=== PATIENT | female | born 1950 | race Caucasian/White ===

== ENCOUNTER 2017-12-17 19:25 | Emergency (ER) | payer OTHER ==
--- OUTSIDE RECORDS SUMMARY | 2017-12-17 19:27 | XMS REPORT ---
:1950 Author Organization [facility] Address [address] [place] [address] Care Team Providers Name Role Phone Unavailable Unavailable Unavailable Problems This patient has no known problems. Allergies, Adverse Reactions, Alerts This patient has no known allergies or adverse reactions. Medications This patient has no known medications. Results Test Description Test Time Test Comments Text Results Atomic Results Result Comments Mammo Digital 2017-09-02 13:52:42 CLINICAL INDICATION: Status post Mammography Diagnostic, ultrasound-guided biopsies with marker Unilat clip placement.MODALITY: Siemens Inspiration Full Field Digital MammographyTECHNIQUE: Digital acquisition of the breasts is performed on the ACR accredited Full Field Digital Mammography Unit. Computer Assisted Detection (CAD) is then accomplished using AdsIt Technology. Imaging of the left breast is performed.FINDINGS:COMPARISON STUDY: 08/27/2091 noThere are scattered fibroglandular tissues in both breasts.There is a new heart shaped marker clip in the left breast 3 o clock. This is associated with the mass seen on the prior examination. More superior and laterally, there is a second wreath shaped marker clip.IMPRESSION:Status post ultrasound-guided biopsies with marker clip placement. Category: BIRADS - Post procedure mammograms for marker clip placement. For internal use only X:X US Biopsy, Breast 2017-09-02 13:12:54 CLINICAL INDICATION: N63 Unspecified Ultrasound guidance, lump in breastFINDINGS:The risks and with placement of benefits of the procedure were breast localization discussed with the patient and a first lesion written informed consent obtained.The nodule in the left breast 2 o clock, 6 cm from the nipple was identified under ultrasound. The skin was then cleansed with Betadine. Local anesthesia was obtained with 1% lidocaine. A small skin rand was made using a scalpel. Under ultrasound guidance, several cores were obtained from the nodule using a 12 gauge vacuum-assisted [employer] ultra core biopsy needle. The cores were placed in formalin and sent to pathology. A wreath shaped marker clip was placed at the site of biopsy. The skin incision was closed with Steri-Strips. The patient tolerated procedure well without any complications.IMPRESSION:Status post ultrasound-guided biopsy of nodule in the left breast.Final pathology demonstrates hyalinizing fibroadenoma. The findings are concordant with imaging.The results were faxed to Dr. Way s office on 09/08/2017.BIRADS 2 - Benign. For internal use only X:X US Biopsy, Breast 2017-09-02 12:56:20 CLINICAL INDICATION: N63 Unspecified Ultrasound guidance, lump in breastFINDINGS:The risks and with placement of benefits of the procedure were breast localization discussed with the patient and a first lesion written informed consent obtained.The mass in the left breast 3 o clock, 9 cm from the nipple was identified under ultrasound. The skin was then cleansed with Betadine. Local anesthesia was obtained with 1% lidocaine. A small skin rand was made using a scalpel. Under ultrasound guidance, several cores were obtained from the mass using a 12 gauge vacuum-assisted Bard ultra core biopsy needle. The cores were placed in formalin and sent to pathology. A heart shaped marker clip was placed at the site of biopsy. The skin incision was closed with Steri-Strips. 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 Histologic grade 3/3. Biomarkers are negative for estrogen, negative for progesterone and negative for Her2.The findings are concordant with imaging. Surgical excision is recommended.The results were faxed to Dr. Way s office on 09/08/2017.BIRADS 6 - Known malignancy. For internal use only X:X US BREAST COMPLETE UNL 2017-08-26 11:37:40 CLINICAL INDICATION: Abnormal LT/RT mammogramMODALITY: Siemens Inspiration Full Field Digital Mammography, [place] [id number]: Digital acquisition of the breasts is performed on the ACR accredited Full Field Digital Mammography Unit. Computer Assisted Detection (CAD) is then accomplished using AdsIt Technology. Imaging of the left breast is performed.Realtime and Doppler color breast imaging in all quadrants was performed on the left breast.FINDINGS:COMPARISON STUDY: 08/22/2017There are scattered fibroglandular tissues in both breasts. Mass in question persists on additional mammographic images and corresponds with findings seen on ultrasound.Ultrasound of the left breast demonstrates an irregular hypoechoic mass measuring 9 x 9 x 9 mm in size at 3 o clock, 9 cm from the nipple. This corresponds to the mammographic finding of concern. An elongated hypoechoic lesion measuring 8 mm at 2 o clock, 6 cm from the nipple likely corresponds with a benign stable benign-appearing density on mammography. Benign-appearing lymph nodes are noted in the left axilla.IMPRESSION:Irregular hypoechoic mass in the left breast 3 o clock, highly suspicious for malignancy. Probably benign hypoechoic lesion in the left breast 2 o clock.RECOMMENDATION: Ultrasound-guided biopsies of the findings above are recommended for further evaluation.The findings were discussed with the patient.Category: BIRADS 5 - Highly suspicious for malignancy. Biopsy is recommended For internal use only B:0 Mammo Digital 2017-08-26 11:13:57 CLINICAL INDICATION: Abnormal Mammography Diagnostic, mammogramMODALITY: Siemens Unilat Inspiration Full Field Digital Mammography, Stefani [place] 70GTECHNIQUE: Digital acquisition of the breasts is performed on the ACR accredited Full Field Digital Mammography Unit. Computer Assisted Detection (CAD) is then accomplished using AdsIt Technology. Imaging of the left breast is performed.Realtime and Doppler color breast imaging in all quadrants was performed on the left breast.FINDINGS:COMPARISON STUDY: 08/22/2017There are scattered fibroglandular tissues in both breasts. Mass in question persists on additional mammographic images and corresponds with findings seen on ultrasound.Ultrasound of the left breast demonstrates an irregular hypoechoic mass measuring 9 x 9 x 9 mm in size at 3 o clock, 9 cm from the nipple. This corresponds to the mammographic finding of concern. An elongated hypoechoic lesion measuring 8 mm at 2 o clock, 6 cm from the nipple likely corresponds with a benign stable benign-appearing density on mammography. Benign-appearing lymph nodes are noted in the left axilla.
--- OUTSIDE RECORDS SUMMARY | 2017-12-17 19:27 | XMS REPORT | Clinical Summary ---
:1950 Author Organization [facility] Address [address] [place] [address] Care Team Providers Name Role Phone Tacho Leahy MD Primary Care Provider Allergies Active Allergy Reactions Severity Noted Date Comments No Known Drug Allergies 12/08/2015 Current Medications Prescription Sig. Disp. Refills Start Date End Date Status aspirin (ECOTRIN) 81 Take 1 Active MG enteric coated tablet by tablet mouth daily. levothyroxine Take 75 mcg 3 03/30/2016 Active (SYNTHROID, LEVOXYL) by mouth 75 mcg tablet once daily. PREMARIN 0.625 mg Take 0.625 4 03/31/2016 Active tablet mg by mouth once daily. losartan-hydrochloro Take 1 90 tablet 3 12/20/2016 Active thiazide (HYZAAR) tablet by 100-25 mg per tablet mouth daily. losartan-hydrochloro Take 1 90 tablet 3 06/25/2016 12/20/2016 Discontinued thiazide (HYZAAR) tablet by 100-25 mg per tablet mouth daily. carvedilol (COREG) Take 1 180 tablet 3 09/27/2016 09/27/2017 25 MG tablet tablet (25 mg total) by mouth 2 (two) times a day with meals. Active Problems Problem Noted Date Abnormal electrocardiogram 06/26/2016 Hyperlipidemia 12/23/2015 Hypertension 12/08/2015 Last Assessment & Plan: Increase Coreg to 25 BID Avoid salt/stress. Focus on diet/exercise/wt.loss. check lipids Abnormal electrocardiography 12/08/2015 Encounters Date Type Specialty Care Team Description 12/20/2016 Refill Cardiology Олег Sandhu MA Med Refill after 12/16/2016 Family History Medical History Relation Name Comments COPD Brother COPD Father Hypertension Father Hypertension Mother Uterine cancer Mother Coronary artery disease Other family history Relation Name Status Comments Brother Father Mother Other Social History Tobacco Use Types Packs/Day Years Used Date Never Smoker Smokeless Tobacco: Never Used Alcohol Use Drinks/Week oz/Week Comments No Sex Assigned at Date Recorded Not on file Last Filed Vital Signs Not on file Plan of Treatment Health Maintenance Due Date Last Done Comments BREAST CANCER SCREENING 2000 COLON CANCER SCREENING 2000 SHINGRIX VACCINE (#1) 2000 ZOSTER VACCINE 2010 PNEUMOCOCCAL POLYSACCHARIDE VACCINE AGE 65 AND OVER 11/17/2015 PNEUMOCOCCAL-13 11/17/2015 INFLUENZA VACCINE 09/21/2017 Results Not on fileafter 12/16/2016 Insurance Payer Benefit Plan / Group Subscriber ID Type Phone Address [facility] CHOICE/CHOICE + xxxxxxxxx HMO/PPO Work: [employer] [phone] [id number] Home:
[2017-12-17 20:15] LABS: Absolute Lymphocytes (CBC) 1.6 K/uL (0.7-4.9); Absolute Monocytes 1.1 K/uL (0.1-1.3); Absolute Neutrophil 13.3 K/uL (1.8-8.0); Basophils % 0.4 % (0-1.3); Eosinophils % 0.4 % (0-4.4); Hematocrit 28.7 % (36.0-45.0); Lymphocytes % 9.8 % (15.3-44.8); MCH 36.2 pg (27.0-35.0); MCV 105.2 fL (80-100); MPV 8.9 fL (7.6-11.3); Monocytes % 6.6 % (3.3-12.3); RBC Red Blood Cell Count 2.73 M/uL (3.86-4.86)
[2017-12-17 20:32] LABS: Protime INR 1.04
[2017-12-17 20:50] LABS: BUN Blood Urea Nitrogen 11 mg/dL (7-18); Bicarbonate 22 mmol/L (21-32); Glucose Level 119 mg/dL (74-106); Magnesium 2.4 mg/dL (1.8-2.4); NT PRO-BNP 207 pg/mL (<125); Potassium 3.8 mmol/L (3.5-5.1); Sodium Level 143 mmol/L (136-145); Troponin (Emerg Dept Use Only) < 0.02 ng/mL (0.0-0.045)
--- NOTE | 2017-12-17 21:12 | RAD REPORT ---
EXAM DESCRIPTION: [place] Single View12/17/2017 8:40 pm CLINICAL HISTORY: sob COMPARISON: 2012 FINDINGS: The lungs appear clear of acute infiltrate. The heart is normal size. Central venous line has its tip in superior vena cava IMPRESSION: No acute abnormalities displayed
[2017-12-17 21:18] LABS: Anisocytosis 1+; Blood Morphology Comment NOTED (NOT SEEN); Macrocytosis 1+; Platelet Estimate ADEQ; Teardrop Cell 1+
--- NOTE | 2017-12-17 21:24 | RAD REPORT ---
EXAM DESCRIPTION: USExtrem Venous W Compress Bil12/17/2017 9:18 pm CLINICAL HISTORY: Bilateral leg swelling COMPARISON: none FINDINGS: The common femoral, superficial femoral, popliteal and posterior tibial veins bilaterally are compressible and demonstrate augmentation. Doppler demonstrates good flow. IMPRESSION: No evidence of deep venous thrombosis involving either lower extremity.
--- NOTE | 2017-12-17 22:14 | EDPHYS ---
Physician Documentation [facility] Name: Jaquelin Fernandes Age: 67 yrs Sex: Female : 1950 Arrival Date: 12/17/2017 Time: 19:37 Bed 24 Private MD: ED Physician Miles Estrada HPI: 12/17 20:19 This 67 yrs old Female presents to ER via Ambulatory with complaints of Leg kb Swelling. 20:19 The patient presents with swelling. The complaints affect the right leg and left leg. kb Context: the patient can fully bear weight, the patient is able to ambulate. Onset: The symptoms/episode began/occurred today. Modifying factors: The symptoms are alleviated by nothing. the symptoms are aggravated by nothing. Associated signs and symptoms: Pertinent positives: swelling, Pertinent negatives calf tenderness, fever, nausea, numbness, rash, tingling, vomiting, warmth, weakness. Treatment prior to arrival includes: no previous treatment. Severity of symptoms: At their worst the symptoms were moderate, in the emergency department the symptoms are unchanged. The patient has not experienced similar symptoms in the past. The patient has not recently seen a physician. Pt noticed that she had swelling to both legs today. Called the after hours oncology dr and was told to come to ER for US to r/o dvt. Pt denies chest pain, shortness of breath or any other symptoms. Historical: - Home Meds: 20:45 Labetalol Oral 1 tab [Active]; aspirin 81 mg Oral chew [Active]; Synthroid Oral tl3 [Active]; - PMHx: 20:01 breast Ca; mg2 - PSHx: 20:01 None; mg2 - Immunization history:: Adult Immunizations up to date. - Social history:: Smoking status: Patient/guardian denies using tobacco, never smoked. - Ebola Screening: : No symptoms or risks identified at this time. ROS: 20:17 Constitutional: Negative for fever, chills, and weight loss, ENT: Negative for injury, kb pain, and discharge, Neck: Negative for injury, pain, and swelling, Cardiovascular: Negative for chest pain, palpitations. Respiratory: Negative for shortness of breath, cough, wheezing, and pleuritic chest pain, Abdomen/GI: Negative for abdominal pain, nausea, vomiting, diarrhea, and constipation, Back: Negative for injury and pain, : Negative for injury, bleeding, discharge, and swelling, Skin: Negative for injury, rash, and discoloration, Neuro: Negative for headache, weakness, numbness, tingling, and seizure. 20:17 Cardiovascular: Positive for edema. 20:17 MS/extremity: Positive for swelling, of the right leg and left leg. Exam: 20:17 Constitutional: This is a well developed, well nourished patient who is awake, alert, kb and in no acute distress. Head/Face: Normocephalic, atraumatic. ENT: Nares patent. No nasal discharge, no septal abnormalities noted. Tympanic membranes are normal and external auditory canals are clear. Oropharynx with no redness, swelling, or masses, exudates, or evidence of obstruction, uvula midline. Mucous membranes moist. Neck: Trachea midline, no thyromegaly or masses palpated, and no cervical lymphadenopathy. Supple, full range of motion without nuchal rigidity, or vertebral point tenderness. No Meningismus. Chest/axilla: Normal chest wall appearance and motion. Nontender with no deformity. No lesions are appreciated. Cardiovascular: Regular rate and rhythm with a normal S1 and S2. No gallops, murmurs, or rubs. Normal PMI, no JVD. No pulse deficits. Respiratory: Lungs have equal breath sounds bilaterally, clear to auscultation and percussion. No rales, rhonchi or wheezes noted. No increased work of breathing, no retractions or nasal flaring. Abdomen/GI: Soft, non-tender, with normal bowel sounds. No distension or tympany. No guarding or rebound. No evidence of tenderness throughout. Skin: Warm, dry with normal turgor. Normal color with no rashes, no lesions, and no evidence of cellulitis. MS/ Extremity: Pulses equal, no cyanosis. Neurovascular intact. Full, normal range of motion. Neuro: Awake and alert, GCS 15, oriented to person, place, time, and situation. Cranial nerves II-XII grossly intact. Motor strength 5/5 in all extremities. Sensory grossly intact. Cerebellar exam normal. Normal gait. 20:17 Cardiovascular: Edema: pedal edema, that is moderate. Vital Signs: 19:37 BP 141 / 71; Pulse 98; Resp 18; Temp 98.7; Pulse Ox 100% on R/A; Weight 77.11 kg; tl3 Height 5 ft. 4 in. (162.56 cm); 20:55 BP 141 / 65; Pulse 90; Resp 18; Pulse Ox 100% on R/A; Pain 0/10; mg2 19:37 Body Mass Index 29.18 (77.11 kg, 162.56 cm) tl3 MDM: 19:44 Patient medically screened. 20:19 Data reviewed: vital signs, nurses notes. Data interpreted: Pulse oximetry: on room air kb is 100 %. Interpretation: normal. 21:47 Counseling: I had a detailed discussion with the patient and/or guardian regarding: the kb historical points, exam findings, and any diagnostic results supporting the discharge/admit diagnosis, lab results, radiology results, the need for outpatient follow up, a family practitioner, to return to the emergency department if symptoms worsen or persist or if there are any questions or concerns that arise at home. 21:58 ED course: Pt educated on diagnostic results. States the dr she spoke to wanted to be kb called with results. call worker physician paged. Awaiting call back. 22:13 ED course: Spoke to Dr Cote, the oncologist account liaison from Dr Hassan, who referred pt to ER. Would like pt to follow up outpatient next week. 12/17 19:49 Order name: NT PRO-BNP; Complete Time: 21:00 kb 12/17 19:49 Order name: Basic Metabolic Panel; Complete Time: 21:00 kb 12/17 19:49 Order name: CBC with Diff; Complete Time: 21:21 kb 12/17 19:49 Order name: Magnesium; Complete Time: 21:00 kb 12/17 19:49 Order name: PT-INR; Complete Time: 21:00 kb 12/17 19:49 Order name: Troponin (emerg Dept Use Only); Complete Time: 21:00 kb 12/17 19:49 Order name: XRAY Chest (1 view); Complete Time: 21:17 kb 12/17 19:49 Order name: EKG; Complete Time: 19:49 kb 12/17 19:49 Order name: Cardiac monitoring; Complete Time: 19:58 kb 12/17 19:49 Order name: EKG - Nurse/Tech; Complete Time: 19:58 kb 12/17 19:49 Order name: IV Saline Lock; Complete Time: 19:58 kb 12/17 19:49 Order name: US Extremity Venous W Compression Rajeev; Complete Time: 21:47 kb 12/17 20:41 Order name: Manual Differential; Complete Time: 21:21 EDRI 12/17 22:07 Order name: Urine Dipstick--Ancillary (enter results) ms 12/17 19:49 Order name: Labs collected and sent; Complete Time: 19:58 kb 12/17 19:49 Order name: O2 Per Protocol; Complete Time: 19:58 kb 12/17 19:49 Order name: O2 Sat Monitoring; Complete Time: 19:58 kb 12/17 21:22 Order name: Urine Dipstick-Ancillary (obtain specimen); Complete Time: 21:35 kb Administered Medications: No medications were administered Disposition: 12/18 05:11 Co-signature as Attending Physician, Miles Estrada MD I agree with the assessment and 4 plan of care. Attestation: The patient's history, exam findings, diagnostics, and a summary of any interventions or procedures was reviewed in detail with Romy CASTILLO. Disposition: 12/17/17 22:13 Discharged to Home. Impression: Edema, unspecified, Elevated white blood cell count. - Condition is Stable. - Discharge Instructions: Edema, [id number], Peripheral Edema. - Medication Reconciliation Form, Thank You Letter, Antibiotic Education, Prescription Opioid Use form. - Follow up: Private Physician; When: 2 - 3 days; Reason: Recheck today's complaints, Continuance of care, Re-evaluation by your physician. Follow up: Emergency Department; When: As needed; Reason: Worsening of condition. Signatures: Dispatcher [employer] [facility] Romy Lara FNP-C FNP-Ckb Wadley, Terrence, MD MD tw4 Annie Ashby RN RN tl3 Jaret Woo RN RN mg2 Corrections: (The following items were deleted from the chart) 12/17 20:45 20:01 Home Meds: Cytoxan Oral; mg2 tl3 22:25 22:13 12/17/2017 22:13 Discharged to Home. Impression: Edema, unspecified; Elevated mg2 white blood cell count. Condition is Stable. Forms are Medication Reconciliation Form, Thank You Letter, Antibiotic Education, Prescription Opioid Use. Follow up: Private Physician; When: 2 - 3 days; Reason: Recheck today's complaints, Continuance of care, Re-evaluation by your physician. Follow up: Emergency Department; When: As needed; Reason: Worsening of condition. kb 23:00 22:13 ED course: Spoke to the oncologist account liaison from Dr Hassan. Would like pt to follow kb up outpatient next week. kb 23: 22:13 ED course: Spoke to Dr Cote, the oncologist account liaison from Dr Hassan. Would like pt kb to follow up outpatient next week. kb
--- NOTE | 2017-12-17 22:14 | ER ---
Nurse's Notes [facility] Name: Jaquelin Fernandes Age: 67 yrs Sex: Female : 1950 Arrival Date: 12/17/2017 Time: 19:37 Bed 24 Private MD: Diagnosis: Edema, unspecified;Elevated white blood cell count Presentation: 12/17 19:37 Presenting complaint: Patient states: swelling to bilateral legs, started today, on tl3 Chemo told to come get ultrasound done Outpatient Oncology [phone]. Transition of care: patient was not received from another setting of care. Onset of symptoms was December 17, 2017. Risk Assessment: Do you want to hurt yourself or someone else? Patient reports no desire to harm self or others. Initial Sepsis Screen: Does the patient meet any 2 criteria? No. Patient's initial sepsis screen is negative. Does the patient have a suspected source of infection? No. Patient's initial sepsis screen is negative. Care prior to arrival: None. 19:37 Method Of Arrival: Ambulatory tl3 19:37 Acuity: SANJANA 3 tl3 Triage Assessment: 19:37 General: Appears in no apparent distress. well groomed, well developed, well nourished, tl3 Behavior is calm, cooperative, appropriate for age. Pain: Denies pain. Historical: - Home Meds: 20:45 Labetalol Oral 1 tab [Active]; aspirin 81 mg Oral chew [Active]; Synthroid Oral tl3 [Active]; - PMHx: 20:01 breast Ca; mg2 - PSHx: 20:01 None; mg2 - Immunization history:: Adult Immunizations up to date. - Social history:: Smoking status: Patient/guardian denies using tobacco, never smoked. - Ebola Screening: : No symptoms or risks identified at this time. Screenin:00 Abuse screen: Denies threats or abuse. Denies injuries from another. Nutritional mg2 screening: No deficits noted. Tuberculosis screening: No symptoms or risk factors identified. Fall Risk IV access (20 points). Assessment: 19:58 General: Appears in no apparent distress. comfortable, Behavior is calm, cooperative. mg2 Pain: Denies pain. Neuro: Level of Consciousness is awake, alert, obeys commands, Oriented to person, place, time, situation. Cardiovascular: Capillary refill < 3 seconds Patient's skin is warm and dry. Respiratory: Airway is patent Respiratory effort is even, unlabored, Respiratory pattern is regular, symmetrical. GI: No signs and/or symptoms were reported involving the gastrointestinal system. : No signs and/or symptoms were reported regarding the genitourinary system. EENT: No signs and/or symptoms were reported regarding the EENT system. Derm: Skin is intact, is healthy with good turgor, Skin is pink, warm \T\ dry. normal. Musculoskeletal: Circulation, motion, and sensation intact. Capillary refill < 3 seconds, Swelling present in both legs. Vital Signs: 19:37 BP 141 / 71; Pulse 98; Resp 18; Temp 98.7; Pulse Ox 100% on R/A; Weight 77.11 kg; tl3 Height 5 ft. 4 in. (162.56 cm); 20:55 BP 141 / 65; Pulse 90; Resp 18; Pulse Ox 100% on R/A; Pain 0/10; mg2 19:37 Body Mass Index 29.18 (77.11 kg, 162.56 cm) tl3 ED Course: 19:37 Patient arrived in ED. am2 19:37 Arm band placed on right wrist. tl3 19:39 Triage completed. tl3 19:42 Romy Lara FNP-C [facility]. kb 19:42 Miles Estrada MD is Attending Physician. kb 19:49 Jaret Woo, DESTINY is Primary Nurse. mg2 20:00 Patient has correct armband on for positive identification. Bed in low position. Call mg2 light in reach. Side rails up X 1. site monitor on. Pulse ox on. NIBP on. Door closed. Warm blanket given. 20:00 No provider procedures requiring assistance completed. Inserted saline lock: 20 gauge mg2 in right antecubital area, using aseptic technique. Blood collected. 20:14 EKG done, by ED staff, reviewed by Miles Estrada MD. cb2 20:40 XRAY Chest (1 view) In Process Unspecified. EDMS 21:16 Ultrasound completed. Patient tolerated well. sg3 21:18 US Extremity Venous W Compression Rajeev In Process Unspecified. EDMS 22:24 IV discontinued, intact, bleeding controlled, No redness/swelling at site. Pressure mg2 dressing applied. Administered Medications: No medications were administered Outcome: 22:13 Discharge ordered by . kb 22:24 Discharged to home ambulatory, with family. mg2 22:24 Condition: stable 22:24 Discharge instructions given to patient, family, Instructed on discharge instructions, follow up and referral plans. Demonstrated understanding of instructions, follow-up care. 22:25 Patient left the ED. mg2 Signatures: Dispatcher [employer] EDMS Romy Lara, PREPARATION CENTER COORDINATOR-C PREPARATION CENTER COORDINATOR-Ckb Viridiana Zuniga am2 Paulino Heller Sarah 3 Annie Ashby, DESTINY RN tl3 Jaret Woo RN RN mg2 Corrections: (The following items were deleted from the chart) 20:45 20:01 Home Meds: Cytoxan Oral; mg2 tl3 21:52 20:55 Pulse 90bpm; Resp 18bpm; Pulse Ox 100% RA; Pain 0/10; mg2 mg2
[2017-12-18 01:14] LABS: Urine Blood NEGATIVE (NEG); Urine Glucose NEGATIVE (NEG); Urine Protein NEGATIVE (NEG); Urine Specific Gravity 1.015 (1.005-1.030)
--- NOTE | 2017-12-19 09:10 | EKG ---
Test Date: 2017-12-17 Test Time: 19:56:04 Rfid Specialist: TRE MEASUREMENT RESULTS: Intervals: Rate: 79 FL: 146 QRSD: 104 QT: 376 QTc: 431 Mckenzie: P: 43 FL: 146 QRS: -41 T: 76 INTERPRETIVE STATEMENTS: Normal sinus rhythm Left axis deviation Moderate voltage criteria for LVH, may be normal variant Cannot rule out Septal infarct, age undetermined Abnormal ECG Compared to ECG 02/18/1995 16:21:00 Left-axis deviation now present Left ventricular hypertrophy now present Myocardial infarct finding now present Electronically Signed On 12-19-17 09:10:23 CDT by Brigido Wang
== END 2017-12-17 22:25 | disposition home or self-care (01) ==
LOC: ER 19:25
DX: D72.829 Elevated white blood cell count, unspecified (principal); Z85.3 Personal history of malignant neoplasm of breast; Z79.82 Long term (current) use of aspirin
CPT/HCPCS: 36415; 71045; 80048; 81003; 83735; 83880; 84484; 85025; 85610; 93005; 93970; 99284

== ENCOUNTER 2019-06-13 16:28 | Emergency (ER) | payer OTHER ==
--- OUTSIDE RECORDS SUMMARY | 2019-06-13 16:33 | XMS REPORT ---
:1950 Author Organization [facility] t Address [address] [place] [address] Care Team Providers Name Role Phone Unavailable Unavailable Unavailable Problems This patient has no known problems. Allergies, Adverse Reactions, Alerts This patient has no known allergies or adverse reactions. Medications This patient has no known medications. Results Test Description Test Time Test Comments Text Results Atomic Results Result Comments US BREAST COMPLETE 2018-10-10 CLINICAL INDICATION: C 50.412 Malig neoplasm UNL LT/RT 11:21:59 of upper-outer quadrant of l eft female breast palpable lump left breast.MODALITY: Siemens I nspiration Full Field Digital Mammography, P hilips Affiniti 70GTECHNIQUE: Digital acqu isition of the breasts is performed on the ACR accredited Full Field Digital Mammograp hy Unit. Computer Assisted Detection (CAD) is then accomplished using R2 Techno logy. Imaging of the bilateral breast is p erformed. 3D tomosynthesis images were ac quired in the CC and MLO projections in heydi th breasts.Realtime and Doppl er color breast imaging in all quadrants was performed on the left breast.FINDINGS: COMPARISON STUDY: July 2016, May 2015 , February, August 2008Dia gnostic Mammogram:The breast paren chyma is scattered in tissue density. The left breast is smaller than the r ight breast , with postsurgical distortion in the left upper outer quadrant posteri or depth with overlying skin retraction. M ultiple surgical clips at the lumpec matthias bed.Benign-appearing calci fications are present bilaterally. CC and MLO 2-D and 3-D imaging was performed bilate rally. No suspicious findings in eithe r breast. Ultrasound:Left whole br east ultrasound is performed. Focused evalua tion is performed in the symptomatic concern. The palpable lump corresponds wi th the patient s lumpectomy bed. There is h ypoechoic scar tissue and echogenic tissue marker clips along the periphery of the l umpectomy bed which correlate with the maria l mogram and the symptoms.Incidentally iden tified is 19 by 25 x 7 mm mixed echogenicity area 2 o clock 1 cm from the nipple. When s canned real time, this resembles a promi nent island of glandular tissue or possible fibroadenoma. The previously smaller ident ified 5 mm area at 2 o clock 6 cm from the n ipple is no longer identified.No axill shannan adenopathy.IMPRESSION:1. The palpable lump left breast corresponds with the lumpectomy bed scar tissue a nd tissue marker clips.2. Incidentally identified probably benign 2 o clock ma ss like area resembles prominent fibrogla ndular tissue or possible fibroadenoma for which short-term interval imaging surveillance is recommended.RECOMMENDATION :Left diagnostic 3-D mammogram and ultrasound 6 monthsClinical follow-up of the patient s symptoms.Category: BIRADS 3 - Probably benign. Short interval follo wup recommended. For interna l use only F:6 Mammo Digital 2017-09-02 CLINICAL INDICATION: Stat us post Mammography 13:52:42 ultrasound-guided biopsies w ith marker clip Diagnostic, Unilat placement.MODALITY: S iemens Inspiration Full Field Digital Mammograp hyTECHNIQUE: Digital acquisition of the b reasts is performed on the ACR Precise Light Surgicali rod Full Field Digital Mammography Unit. Co mputer Assisted Detection (CAD) is then acco mplished using R2 Technology. Imaging of th e left breast is performed.FINDINGS:COMPAR MILLY STUDY: 08/27/2091 noThere are scatt ered fibroglandular tissues in heydi th breasts.There is a new heart shaped marker clip in the left breast 3 o clock. This is associated with the mass see n on the prior examination. More superior a nd laterally, there is a second wreath sha ped marker clip.IMPRESSION:Status post ultrasound-guided biopsies w ith marker clip placement. Category: BIRADS - Post procedure mammograms for mar ker clip placement. For internal us e only X:X US Biopsy, Breast 2017-09-02 CLINICAL INDICATION: N 63 Unspecified lump Ultrasound guidance, 13:12:54 in breastFINDINGS:Th e risks and benefits of with placement of the procedure were disc ussed with the breast localization patient and a written informed consent first lesion obtained.The nodule in the l eft breast 2 o clock, 6 cm from the nipple was identified under ultrasound. The skin was then cleansed with Betadine. Loc al anesthesia was obtained with 1% lidocai ne. A small skin rand was made using a s calpel. Under ultrasound guidance, several cores were obtained from the nodule usi ng a 12 gauge vacuum-assisted Bard ultra c ore biopsy needle. The cores were plac ed in formalin and sent to pathology. A wr eath shaped marker clip was placed at th e site of biopsy. The skin incision w as closed with Steri-Strips. The patient t olerated procedure well without any complications.IMPRESSION:Sta tus post ultrasound-guided biopsy of nodule in the left breast.Final pathology demonstrates hyalinizing fibroadenoma. T he findings are concordant with imaging.The results were faxed to Dr. Way s office on 09/08/2017.BIRADS 2 - Benign. For internal use only X:X US Biopsy, Breast 2017-09-02 CLINICAL INDICATION: N 63 Unspecified lump Ultrasound guidance, 12:56:20 in breastFINDINGS:Th e risks and benefits of with placement of the procedure were disc ussed with the breast localization patient and a written informed consent first lesion obtained.The mass in the lef t breast 3 o clock, 9 cm from the nipple was identified under ultrasound. The skin was then cleansed with Betadine. Loc al anesthesia was obtained with 1% lidocai ne. A small skin rand was made using a s calpel. Under ultrasound guidance, several cores were obtained from the mass using a 12 gauge vacuum-assisted Bard ultra c ore biopsy needle. The cores were plac ed in formalin and sent to pathology. A he art shaped marker clip was placed at th e site of biopsy. The skin incision w as closed with Steri-Strips. 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 Biomarkers are negative for estrogen, negat jose for progesterone and negative fo r Her2.The findings are concordant with imaging. Surgical excision is recomme nded.The results were faxed to Dr. Bala cortes s office on 09/08/2017.BIRADS 6 - Known m alignancy. For internal use only X:X US BREAST COMPLETE 2017-08-26 CLINICAL INDICATION: Abnormal UNL LT/RT 11:37:40 mammogramMODALITY: Siemens Inspiration Full Field Digital Mammograp hy, Stefani Affiniti 70GTECHNIQUE: Dig ital acquisition of the breasts i s performed on the ACR accredited Full Fiel d Digital Mammography Unit. Computer A ssisted Detection (CAD) is then acco mplished using R2 Technology. Imaging of th e left breast is performed.Realtime and Do ppler color breast imaging in all quadra nts was performed on the left breast.FINDINGS:COMPARISON S TUDY: 08/22/2017There are scattere d fibroglandular tissues in heydi th breasts. Mass in question persists on additional mammographic images and deepa esponds with findings seen on ultrasound. Ultrasound of the left breast demonstrates an irregular hypoechoic mass measuring 9 x 9 x 9 mm in size at 3 o clock, 9 cm from the nipple. This corresponds to the mamm ographic finding of concern. An elong ated hypoechoic lesion measuring 8 mm at 2 o clock, 6 cm from the nipple likely corre sponds with a benign stable benign-appeari ng density on mammography. Benign-appearin g lymph nodes are noted in the left axilla.IMPRESSION:Irregular hypoechoic mass in the left breast 3 o clock , highly suspicious for malignancy. P robably benign hypoechoic lesion in the lef t breast 2 o clock.RECOMMENDATION: Ultras ound-guided biopsies of the findings abo ve are recommended for further eval uation.The findings were discussed with the patient.Category: BIRADS 5 - Highly suspicious for malignancy. Biopsy is recommended For internal u se only B:0 Mammo Digital 2017-08-26 CLINICAL INDICATION: Abno rmal Mammography 11:13:57 mammogramMODALITY: Siemens Inspiration Diagnostic, Unilat Full Field Digital Maria L mography, Stefani Affiniti 70GTECHNIQUE: Dig ital acquisition of the breasts i s performed on the ACR accredited Full Fiel d Digital Mammography Unit. Computer A ssisted Detection (CAD) is then acco mplished using R2 Technology. Imaging of th e left breast is performed.Realtime and Do ppler color breast imaging in all quadra nts was performed on the left breast.FINDINGS:COMPARISON S TUDY: 08/22/2017There are scattere d fibroglandular tissues in heydi th breasts. Mass in question persists on additional mammographic images and deepa esponds with findings seen on ultrasound. Ultrasound of the left breast demonstrates an irregular hypoechoic mass measuring 9 x 9 x 9 mm in size at 3 o clock, 9 cm from the nipple. This corresponds to the mamm ographic finding of concern. An elong ated hypoechoic lesion measuring 8 mm at 2 o clock, 6 cm from the nipple likely corre sponds with a benign stable benign-appeari ng density on mammography. Benign-appearin g lymph nodes are noted in the left axilla.
[2019-06-13] MEDS ORDERED: BUPIVACAINE 0.5% PF 10 ML VIAL ONE (16:46)
[2019-06-13] MEDS ORDERED: LIDOCAINE 1% MPF 5 ML VIAL ONE (16:46)
--- NOTE | 2019-06-13 17:19 | EDPHYS ---
Physician Documentation [facility] Name: Jaquelin Fernandes Age: 68 yrs Sex: Female : 1950 Arrival Date: 06/13/2019 Time: 16:30 Bed 6 Private MD: ED Physician Babatunde Hernandez HPI: 06/12 16:42 This 68 yrs old Female presents to ER via Ambulatory with complaints of kb Finger Laceration. 16:42 The patient has a laceration related to: doing crafts, rib cutter, occurred at home, kb and there are no complicating factors. The injury was accidental. The laceration(s) is(are) located on the left index finger. Onset: The symptoms/episode began/occurred just prior to arrival. Associated signs and symptoms: The patient has no apparent associated signs or symptoms. The patient has not experienced similar symptoms in the past. The patient has not recently seen a physician. Historical: - Allergies: 16:33 No Known Allergies; sv - PMHx: 16:30 BREAST CA; sv 16:33 Eye cancer; sv - PSHx: 16:33 Eye; Hysterectomy; Shoulder; Foot; left breast lymph nodes removed; sv - Immunization history:: Flu vaccine is up to date. - Social history:: Smoking status: Patient denies any tobacco usage or history of. ROS: 16:41 Constitutional: Negative for fever, chills, and weight loss, Cardiovascular: Negative kb for chest pain, palpitations, and edema, Respiratory: Negative for shortness of breath, cough, wheezing, and pleuritic chest pain, Abdomen/GI: Negative for abdominal pain, nausea, vomiting, diarrhea, and constipation, Back: Negative for injury and pain, MS/Extremity: Negative for injury and deformity, Neuro: Negative for headache, weakness, numbness, tingling, and seizure. 16:41 Skin: Positive for laceration(s), of the left index finger. Exam: 16:41 Constitutional: This is a well developed, well nourished patient who is awake, alert, kb and in no acute distress. Head/Face: Normocephalic, atraumatic. Neck: Trachea midline, no thyromegaly or masses palpated, and no cervical lymphadenopathy. Supple, full range of motion without nuchal rigidity, or vertebral point tenderness. No Meningismus. Chest/axilla: Normal chest wall appearance and motion. Nontender with no deformity. No lesions are appreciated. Cardiovascular: Regular rate and rhythm with a normal S1 and S2. No gallops, murmurs, or rubs. Normal PMI, no JVD. No pulse deficits. Respiratory: Lungs have equal breath sounds bilaterally, clear to auscultation and percussion. No rales, rhonchi or wheezes noted. No increased work of breathing, no retractions or nasal flaring. Abdomen/GI: Soft, non-tender, with normal bowel sounds. No distension or tympany. No guarding or rebound. No evidence of tenderness throughout. MS/ Extremity: Pulses equal, no cyanosis. Neurovascular intact. Full, normal range of motion. Neuro: Awake and alert, GCS 15, oriented to person, place, time, and situation. Cranial nerves II-XII grossly intact. Motor strength 5/5 in all extremities. Sensory grossly intact. Cerebellar exam normal. Normal gait. 16:41 Skin: injury, laceration(s), the wound is approximately 3 cm(s), of the left index finger, that can be described as clean, no foreign body, linear, with mild bleeding. Vital Signs: 16:33 BP 183 / 76; Pulse 62; Resp 16; Temp 97.6; Pulse Ox 100% ; Weight 77.11 kg; Height 5 sv ft. 4 in. (162.56 cm); 17:27 BP 171 / 84; Pulse 50; Resp 16; Pulse Ox 97% ; bp 16:33 Body Mass Index 29.18 (77.11 kg, 162.56 cm) sv Procedures: 16:51 Nerve block: (digital) of dorsal aspect of proximal phalanx of left index finger kb Medication: Lidocaine 1% without epinephrine Marcaine 0.5%, Amount: 6 mls were injected, Effect: the patient has resolution of the pain, Set up for procedure. Performed by Romy CASTILLO Patient tolerated well. Laceration: 17:17 Wound Repair of 3cm ( 1.2in ) subcutaneous laceration to left index finger. Irregularly kb shaped.. Skin/tissue flap noted.. Distal neuro/vascular/tendon intact. Anesthesia: Digital block administered with 1% lidocaine. Wound prep: Extensive cleansing with hibiclenz by me, Wound irrigation with saline by me. Skin closed with 8 5-0 Prolene using simple sutures and sterile technique. Patient tolerated well. MDM: 16:36 Patient medically screened. kb 16:41 Data reviewed: vital signs, nurses notes. Data interpreted: Pulse oximetry: on room air kb is 100 %. Interpretation: normal. Counseling: I had a detailed discussion with the patient and/or guardian regarding: the historical points, exam findings, and any diagnostic results supporting the discharge/admit diagnosis, the need for outpatient follow up, a family practitioner, to return to the emergency department if symptoms worsen or persist or if there are any questions or concerns that arise at home. 06/12 16:41 Order name: Prolene, Sutures; Complete Time: 16:45 kb 06/12 16:41 Order name: Dressing - Wound; Complete Time: 16:45 kb 06/12 16:41 Order name: Gloves, Sterile; Complete Time: 16:45 kb 06/12 16:41 Order name: Setup Suture Tray; Complete Time: 16:45 kb Administered Medications: 16:45 Drug: Lidocaine (1 %) 1 vials Volume: 5 ml; Route: Infiltration; bp 17:28 Follow up: Response: No adverse reaction bp 16:45 Drug: Bupivacaine (0.5 %) 1 vials Volume: 10 ml; Route: Infiltration; bp 17:28 Follow up: Response: No adverse reaction bp Disposition: 06/13 07:35 Co-signature as Attending Physician, Babatunde Hernandez MD I agree with the assessment and kdr plan of care. Disposition: 06/13/19 17:18 Discharged to Home. Impression: Laceration without foreign body of left index finger without damage to nail. - Condition is Stable. - Discharge Instructions: Laceration Care, Adult, [id number]. - Medication Reconciliation Form, Thank You Letter, Antibiotic Education, Prescription Opioid Use form. - Follow up: Emergency Department; When: As needed; Reason: Worsening of condition. Follow up: Private Physician; When: 2 - 3 days; Reason: Recheck today's complaints, Continuance of care, Re-evaluation by your physician. Signatures: Romy Lara, Maryann Noyola RN RN sv Rittger, Kevin, MD MD kdr Peltier, Brian RN RN bp Corrections: (The following items were deleted from the chart) 06/12 16:33 16:30 PSHx: None; sv sv 17:18 16:41 Skin: injury, laceration(s), the wound is approximately 2 cm(s), of the left kb index finger, that can be described as clean, no foreign body, linear, with mild bleeding, kb 17:51 17:18 06/13/2019 17:18 Discharged to Home. Impression: Laceration without foreign body bp of left index finger without damage to nail. Condition is Stable. Forms are Medication Reconciliation Form, Thank You Letter, Antibiotic Education, Prescription Opioid Use. Follow up: Emergency Department; When: As needed; Reason: Worsening of condition. Follow up: Private Physician; When: 2 - 3 days; Reason: Recheck today's complaints, Continuance of care, Re-evaluation by your physician. kb
--- NOTE | 2019-06-13 17:19 | ER ---
Nurse's Notes [facility] Name: Jaquelin Fernandes Age: 68 yrs Sex: Female : 1950 Arrival Date: 06/13/2019 Time: 16:30 Bed 6 Private MD: Diagnosis: Laceration without foreign body of left index finger without damage to nail Presentation: 06/12 16:30 Chief complaint: Patient states: laceration to the left 2nd digit with a terry cloth cutter hand. sv Coronavirus screen: Proceed with normal triage. Patient denies a cough. Patient denies shortness of breath or difficulty breathing. Patient denies measured and/or subjective temperature greater than 100.4F prior to today's visit. Patient denies travel on a cruise ship or to a country the [facility] currently lists as an affected area. Patient denies contact with known and/or suspected case of COVID-19. Ebola Screen: No symptoms or risks identified at this time. Risk Assessment: Do you want to hurt yourself or someone else?. Onset of symptoms was June 13, 2019. 16:30 Method Of Arrival: Ambulatory 16:30 Acuity: SANJANA 4 sv 16:33 Initial Sepsis Screen: Does the patient meet any 2 criteria? No. Patient's initial sv sepsis screen is negative. Does the patient have a suspected source of infection? No. Patient's initial sepsis screen is negative. Triage Assessment: 16:35 General: Appears in no apparent distress. comfortable, Behavior is calm, cooperative, sv appropriate for age. Pain: Complains of pain in left index finger. Neuro: Level of Consciousness is awake, alert, obeys commands, Gait is steady. Respiratory: Respiratory effort is even, unlabored. Historical: - Allergies: 16:33 No Known Allergies; sv - PMHx: 16:30 BREAST CA; sv 16:33 Eye cancer; sv - PSHx: 16:33 Eye; Hysterectomy; Shoulder; Foot; left breast lymph nodes removed; sv - Immunization history:: Flu vaccine is up to date. - Social history:: Smoking status: Patient denies any tobacco usage or history of. Screenin:35 Abuse screen: Denies threats or abuse. Denies injuries from another. Nutritional bp screening: No deficits noted. Tuberculosis screening: No symptoms or risk factors identified. Fall Risk None identified. Assessment: 16:35 General: SEE TRIAGE NOTE. bp 17:51 Reassessment: PT D/ C HOME AMBULATORY, DX WITH LACERATION WITHOUT FOREIGN BODY. bp Vital Signs: 16:33 BP 183 / 76; Pulse 62; Resp 16; Temp 97.6; Pulse Ox 100% ; Weight 77.11 kg; Height 5 sv ft. 4 in. (162.56 cm); 17:27 BP 171 / 84; Pulse 50; Resp 16; Pulse Ox 97% ; bp 16:33 Body Mass Index 29.18 (77.11 kg, 162.56 cm) sv ED Course: 16:30 Patient arrived in ED. ag5 16:30 Arm band placed on. sv 16:32 Triage completed. sv 16:33 Romy Lara FNP-C is [facility]. kb 16:33 Babatunde Hernandez MD is Attending Physician. kb 16:35 Patient has correct armband on for positive identification. Bed in low position. Call bp light in reach. Side rails up X2. 16:37 Forrest Padilla, RN is Primary Nurse. bp 17:00 Assist provider with laceration repair on dorsal aspect of proximal phalanx of left bp index finger that was 2.5 cm. or less using sutures. Set up tray. Performed by Romy CASTILLO Dressed with Geri, Patient tolerated well. 17:27 Patient did not have IV access during this emergency room visit. bp Administered Medications: 16:45 Drug: Lidocaine (1 %) 1 vials Volume: 5 ml; Route: Infiltration; bp 17:28 Follow up: Response: No adverse reaction bp 16:45 Drug: Bupivacaine (0.5 %) 1 vials Volume: 10 ml; Route: Infiltration; bp 17:28 Follow up: Response: No adverse reaction bp Outcome: 17:18 Discharge ordered by MD. kb 17:51 Discharged to home ambulatory. bp 17:51 Condition: stable 17:51 Discharge instructions given to patient, Instructed on discharge instructions, follow up and referral plans. wound care, Demonstrated understanding of instructions, follow-up care, wound care. 17:51 Patient left the ED. bp Signatures: Romy Lara FNP-C FNP-Ckb Verde, Stephanie, RN RN Forrest Padilla RN RN Dana Rojas ag5 Corrections: (The following items were deleted from the chart) 16:33 16:30 PSHx: None; sv sv 16:36 16:33 Pulse 62bpm; Resp 16bpm; Pulse Ox 100%; Temp 97.6F; 77.11 kg; Height 5 ft. 4 in.; sv BMI: 29.1; sv
[2019-06-13 17:55] VITALS: TEMP 97.6
[2019-06-13 17:57] VITALS: BP 171/84; O2SAT 97
== END 2019-06-13 17:51 | disposition home or self-care (01) ==
LOC: ER 16:28
PROC: 0JQK0ZZ Repair Left Hand Subcutaneous Tissue and Fascia, Open Approach (ICD-10-PCS; principal; 2019-06-13)
DX: S61.211A Laceration without foreign body of left index finger without damage to nail, initial encounter (principal); W45.8XXA Other foreign body or object entering through skin, initial encounter; W27.8XXA Contact with other nonpowered hand tool, initial encounter; Y93.89 Activity, other specified; Y92.009 Unspecified place in unspecified non-institutional (private) residence as the place of occurrence of the external cause; Z85.3 Personal history of malignant neoplasm of breast; Z85.840 Personal history of malignant neoplasm of eye
CPT/HCPCS: 64450; 99283